=== PATIENT | female | born 1980 | race Caucasian/White ===

== ENCOUNTER → 2017-03-10 | Day surgery (SDC) | payer BC, OTHER ==
[~2017-03-10] VITALS: Ht 174 cm; Wt 102.3 kg
[~2017-03-10] MED LIST: ADVIL200 MG PO; FEOSOL325 MG PO; LEVOTHROID (SY88 MCG PO; NORCO 5-325 TA1 EACH PO; TAB-A-VITE1 EACH PO; XOPENEX HF45 MCG/INH INH; ZOLOFT50 MG PO; [UNRECOGNIZED DRUG - OTHER] PO
--- NOTE | ~2017-03-10 | OR ---
PATIENT'S NAME: [facility] AGE: 36 Y [address] ROOM: [place] [id number] [place] [facility] [place]: 03/10/2017 OR/Procedure Report DISCHARGE DATE: FAMILY PHYSICIAN: DENIS HURTADO MD ATTENDING PHYSICIAN: Cristal Musa SURGEON: Cristal Musa MD SIZE MARKER: None. DATE OF PROCEDURE: 03/10/2017 PREOPERATIVE DIAGNOSIS: Abdominal wall pain suspected endometrioma. POSTOPERATIVE DIAGNOSIS: Abdominal wall pain suspected endometrioma. PROCEDURE PERFORMED: Excisional biopsy of endometrioma. ANESTHESIA: General anesthesia. ESTIMATED BLOOD LOSS: 10 mL. CLINICAL INDICATION: Davidson Topete is a 36-year-old female with chronic abdominal wall pain present in the left lower quadrant at the lateral aspect of her previous section Pfannenstiel scar. It worsens with menstrual periods. It is painful to the touch. There is a palpable nodule present in that area. We suspected that this represent an endometrioma, and she desires to have it surgically removed. FINDINGS: A 3-cm endometrioma, chocolate cyst identified at the time of surgery. DESCRIPTION OF PROCEDURE: The patient was taken to the operating room, given general anesthesia with good results, placed in a supine position, and prepped and draped in the usual fashion. There was a slight indentation of the left lateral aspect of her Pfannenstiel incision. This was incised in an oval fashion and the incision was directed directly perpendicular to the skin and fascia. The nodule was identified and the dissection was performed using cautery dissection. During the process of excising the nodule, the endometrioma cavity was entered and the chocolate cyst material was exuded from the endometrioma. The endometrioma was in a bilobed pattern. The initial dissection removed the superficial lobe. We then grasped the remainder of the nodule with a single-tooth tenaculum and completely dissected the remaining aspect of the endometrioma. The fascial layer was intact. We did not disrupt the fascia. The specimen was removed from the operative field. The subcutaneous tissue was reapproximated using 2-0 Vicryl suture in 2 layers. The skin was closed with running continuous subcuticular stitch of 4-0 Vicryl suture. Sponge, needle, and instrument counts were correct. The PATIENT'S NAME: [facility]SON [facility] AGE: 36 Y [address] ROOM: [place] [id number] [place]: [facility] [place] DATE: 03/10/2017 OR/Procedure Report DISCHARGE DATE: FAMILY PHYSICIAN: DENIS HURTADO MD ATTENDING PHYSICIAN: Cristal Musa patient tolerated the procedure well and was taken to the recovery room in good condition. CRISTAL MUSA MD DHW/modl /[id number] d: 03/10/17 1456 t: 03/20/17 0711, OPERATIVE SUMMARY
[2017-03-10 06:59] LABS: BASOPHIL # 0.1 K/uL (0.0-0.2); BASOPHIL % 0.8 %; EOSINOPHIL # 0.3 K/uL (0.0-0.5); EOSINOPHIL % 2.7 %; HEMATOCRIT 37.5 % (33.0-46.0); HEMOGLOBIN 12.4 g/dL (11.0-15.0); IMMATURE GRANULOCYTE % 0.3 %; LYMPHOCYTE # 2.9 K/uL (0.8-4.0); LYMPHOCYTE % 29.9 %; MCH 26.7 pg (27.0-34.0); MCHC 33.1 gm/dL (32.0-36.5); MCV 80.8 fl (83.0-98.0); MONOCYTE # 0.7 K/uL (0.0-1.0); MONOCYTE % 7.1 %; MPV 10.1 fl (9.4-12.4); NEUTROPHIL # (ANC) 5.7 K/uL (1.8-7.8); NEUTROPHIL % 59.2 %; NRBC % 0 /100WBC (0-0.00); PLATELET COUNT 255 K/uL (150-450); RBC 4.64 M/uL (3.50-5.50); RDW-CV 14.3 % (11.9-14.6); WBC 9.7 K/uL (4.0-11.0)
== END ==
LOC: GPOC 02-21 08:00 → GSDC 06:12
PROVIDERS: Obstetrics & Gynecology
PROC: 0U5B0ZZ Destruction of Endometrium, Open Approach (ICD-10-PCS; principal; 2017-03-10)
DX: N80.9 Endometriosis, unspecified (principal); J45.909 Unspecified asthma, uncomplicated; E03.9 Hypothyroidism, unspecified; Z88.8 Allergy status to other drugs, medicaments and biological substances; Z90.49 Acquired absence of other specified parts of digestive tract; Z98.890 Other specified postprocedural states; Z79.899 Other long term (current) drug therapy
CPT/HCPCS: J0295; J1100; J2250; J2405; J3010; J7030; J7040